=== PATIENT | female | born 1995 | race Asian ===

== ENCOUNTER 2018-05-09 08:56 | Emergency (ER) | payer BC, OTHER ==
[~2018-05-09] VITALS: Ht 157.5 cm; Wt 65.5 kg
[2018-05-09 09:06] VITALS: BP 113/89
--- NOTE | 2018-05-09 09:15 | NUR ---
PATIENT AMBULATED TO BED 7 AT THIS TIME.
--- NOTE | 2018-05-09 09:20 | NUR ---
22 Y F BIB UNCLE WITH C/O DRY COUGH SINCE LAST NIGHT, DIZZINESS, FELL ON A TILE FLOOR, LOC UNKNOWN DOWN TIME WITH HEAD LACERATION AND RT ELBOW. 2 IN HEAD LACERATION, +REDNESS, +BLEEDING. PAIN 8/10. ELBOW +ROM, -REDNESS, -SWELLING. AA0X4. CLEAR SPEECH. VSS AT THIS TIME. -N/V. BED IS DOWN, LOCKED, BED RAIL X 1, ERMD NOTIFIED. HX; DENIES RX; DENIES
--- NOTE | 2018-05-09 09:25 | NUR ---
DR COY AT BEDSIDE
--- NOTE | 2018-05-09 09:32 | NUR ---
RESIDENT AT BEDSIDE
[2018-05-09] MEDS ORDERED: LIDOCAINE/EPI 2% 1:100000 20 ML VIAL INJ ONE (09:48)
[2018-05-09] MEDS ORDERED: LIDOCAINE/EPI 1% 1:100000 20 ML VIAL INJ ONE ×2 (09:50→09:55)
[2018-05-09] MEDS ORDERED: CEPHALEXIN 500 MG CAP PO ONE (09:55)
[2018-05-09] MEDS ORDERED: LIDOCAINE 1% 500 MG/50 ML VIAL INJ ONE (09:55)
[2018-05-09] MEDS ORDERED: IBUPROFEN 800 MG TAB PO ONE (09:55)
[2018-05-09] MEDS ORDERED: NEOMYCIN/POLYMYXIN/BACITRACIN 0.9 GM/1 PKT TP ONE (09:55)
--- NOTE | 2018-05-09 10:29 | NUR ---
PT TAKEN OFF THE UNIT VIA WHEEL CHAIR FOR CT OF THE HEAD BY TERRENCE EASTON
--- NOTE | 2018-05-09 11:03 | NUR ---
WOUND DRESSING APPLIED BY HELEN/RN. +RADIAL PULSE. +FLEXION. PT VERBALIZES UNDERSTANDING OF DRESSING.
[2018-05-09 13:26] VITALS: BP 118/75
--- NOTE | 2018-05-09 13:28 | NUR ---
Patient discharged with v/s stable. Written and verbal after care instructions given and explained. Patient verbalized understanding.RX of ibuprofen given, Ambulatory with steady gait. All questions addressed prior to discharge. Advised to follow up with Pcp NANETTE AND LUCERO REMOVAL AFTER 12 VDAYS, PT VERBALIZED UNDERSTANDING.
== END 2018-05-09 13:28 | disposition home or self-care (01) ==
LOC: MED 08:56
DX: S01.01XA Laceration without foreign body of scalp, initial encounter (principal); R42 Dizziness and giddiness; W18.30XA Fall on same level, unspecified, initial encounter; Y93.89 Activity, other specified; Y92.89 Other specified places as the place of occurrence of the external cause; Y99.8 Other external cause status
CPT/HCPCS: 12002; 70450; 72125; 81002; 81025; 90471; 90715; 99284; J2001

== ENCOUNTER 2023-09-24 20:11 | Emergency (ER) | payer BC, OTHER ==
[~2023-09-24] VITALS: Ht 162.6 cm; Wt 74.8 kg
[2023-09-24 20:14] VITALS: BP 140/81; PULSE 91; RESP 18; TEMP 98.7; O2SAT 100
[2023-09-24] MEDS ORDERED: CYCL-711 PO (20:41)
[2023-09-24] MEDS ORDERED: LID5T TP (20:41)
[2023-09-24] MEDS ORDERED: IBUP-1842 PO (20:41)
[2023-09-24] MEDS: KETOROLAC 30 MG/ML VIAL IM ONE (20:47)
== END 2023-09-24 20:47 | disposition home or self-care (01) ==
LOC: MED 20:11
DX: M79.652 Pain in left thigh (principal); M79.651 Pain in right thigh; Z79.1 Long term (current) use of non-steroidal anti-inflammatories (NSAID); Z79.899 Other long term (current) drug therapy
CPT/HCPCS: 81025; 96372; 99283; J1885

== ENCOUNTER 2023-09-25 07:59 | Observation (INO) | payer BC ==
[~2023-09-25] VITALS: Ht 162.6 cm; Wt 79.4 kg
[~2023-09-25 07:59] MED LIST: CYCL-711 PO; IBUP-1842 PO; LID5T TP
[2023-09-25 08:20] VITALS: BP 142/81; PULSE 81; RESP 18; TEMP 97.7; O2SAT 100
--- NOTE | 2023-09-25 08:25 | NUR ---
pt ambualted to bed 12
--- NOTE | 2023-09-25 08:29 | NUR ---
pt ambulated to restroom to provide requested urine sample
--- NOTE | 2023-09-25 08:35 | NUR ---
PT UNABLE TO PROVIDE URINE SAMPLE AT THIS TIME
--- NOTE | 2023-09-25 08:40 | NUR ---
28 YO F; NKA; PMHX ANEMIA; PATIENT PRESENTS TO ED FOR BILATERAL LEG PAINS. PT SEEN YESTERDAY FOR SAME ISSUE, NOT IMPROVING. PT STATES DID A WORK OUT ON MONDAY AND STARTED HAVING DISCOMFOT IN BOTH LEGS SINCE. DENIES N/V/D; SKIN IS PINK/WARM/DRY; AAOX4, AMBULATORY WITH SOME DISCOMFORT ; LUNGS CLEAR BL; HR EVEN AND REGULAR; PT DENIES ANY FEVER, CP, SOB, OR COUGH AT THIS TIME; PATIENT STATES SHARP/STABBING/CONSTANT PAIN OF 10/10 AT THIS TIME; DURING ASSESSMENT RESPIRATORY THERAPY AIDE NOTICED BRUISING TO LEFT KNEE, PT STATES SHE DID FALL DURING WORKOUT. VSS; PATIENT POSITIONED FOR COMFORT; HOB ELEVATED; BEDRAILS UP X2; BED DOWN. ER MD MADE AWARE OF PT STATUS.
[2023-09-25] MEDS: NACL 0.9% 1,000 ML IV ONE (09:12)
[2023-09-25] MEDS: ONDANSETRON 4 MG/2 ML VIAL IVP ONE (09:50)
[2023-09-25] MEDS: MORPHINE SULFATE 4 MG/ML SYR IVP ONE (09:50)
[2023-09-25 09:53] LABS: APPEARANCE,URINE CLEAR (CLEAR); BILIRUBIN,URINE NEGATIVE (NEGATIVE); BLOOD, URINE 3+ (NEGATIVE); COLOR,URINE YELLOW (YELLOW); LEUKOCYTE ESTERASE ,URINE TRACE (NEGATIVE); NITRITE, URINE NEGATIVE (NEGATIVE); PROTEIN,URINE 2+ (NEGATIVE); UGLUCOSE NEGATIVE (NEGATIVE); UROBILINOGEN,URINE 0.2 EU/dL (0.2 - 1)
[2023-09-25 10:00] LABS: BASOPHILS % (AUTO) 0.5 % (0.0-2.0); EOSINOPHILS # (AUTO) 0.1 K/uL (0-0.4); EOSINOPHILS % (AUTO) 0.7 % (0.0-4.0); HEMOGLOBIN 12.7 g/dL (12.0-16.0); LYMPHOCYTES # (AUTO) 1.1 K/uL (2.5-16.5); LYMPHOCYTES % (AUTO) 12.3 % (20.5-51.1); MEAN CORPUSCULAR HEMOGLOBIN 31 pg (27-31); MEAN CORPUSCULAR HGB CONC 34 g/dL (33-37); MEAN CORPUSCULAR VOLUME 89.5 fL (80-94); MONOCYTES # (AUTO) 0.5 K/uL (0.8-1.0); MONOCYTES % (AUTO) 5.6 % (1.7-9.3); NEUTROPHILS # (AUTO) 7.2 K/uL (1.8-7.7); NEUTROPHILS % (AUTO) 80.9 % (42.2-75.2); PLATELET COUNT (AUTO) 297 K/uL (140-450); RED BLOOD CELL COUNT(AUTO) 4.14 MIL/uL (4.20-5.40); RED CELL DISTRIBUTION WIDTH 13.2 % (11.6-13.7); WHITE BLOOD COUNT (AUTO) 8.9 K/uL (4.8-10.8)
[2023-09-25 10:07] LABS: ALBUMIN 3.6 g/dL (3.4-5.0); ANION GAP 13.4 (8-16); CALCIUM 8.7 mg/dL (8.5-10.1); CARBON DIOXIDE 22.6 mmol/L (21-32); CREATININE 0.8 mg/dL (0.6-1.3); TOTAL BILIRUBIN 0.5 mg/dL (0.0-1.0)
[2023-09-25 10:14] LABS: BACTERIA,URINE 10-30 (MOD) /HPF (None Seen); MUCUS,URINE 2+ /LPF (None Seen); SQUAMOUS EPITHELIAL CELL,UR 4-10 (MOD) /LPF (0-3 (FEW))
[2023-09-25 10:15] LABS: HYALINE CASTS, URINE 0-10 /LPF (None Seen)
[2023-09-25 10:53] LABS: CREATINE KINASE, TOTAL 15222 U/L (26-192)
[2023-09-25] MEDS ORDERED: HYDROcodone/APAP 5/325 MG 1 TAB TAB PO PRN (12:00)
[2023-09-25] MEDS ORDERED: ONDANSETRON 4 MG/2 ML VIAL IVP PRN (12:00)
[2023-09-25] MEDS ORDERED: ACETAMINOPHEN 325 MG TAB PO PRN (12:00)
[2023-09-25] MEDS ORDERED: POTASSIUM CHLORIDE 10 MEQ TABER PO PRN (12:00)
[2023-09-25] MEDS ORDERED: LORazepam 1 MG TAB PO PRN (12:00)
[2023-09-25] MEDS ORDERED: KCL 20 MEQ IN 100 mL PREMIX 200 ML IV PRN (12:00)
[2023-09-25] MEDS ORDERED: ZOLPIDEM 5 MG TAB PO PRN (12:00)
--- NOTE | 2023-09-25 12:30 | NUR ---
Patient will be admitted to care of [facility]. Admited to MED/SURG. Will go to room 122B. Belongings list completed. Report to EARNESTINE RN.
[2023-09-25 13:00] VITALS: PULSE 75; RESP 16; O2SAT 100
--- NOTE | 2023-09-25 13:00 | NUR ---
RECEIVED PATIENT FROM ED NURSE FOR CONTINUATION OF CARE. PATIENT TRANSPORTED VIA GURNEY, PATIENT VERBALIZES NO CONCERNS, VITALSW ITHIN NORMAL LIMITS
[2023-09-25 16:00] VITALS: BP 120/65; PULSE 75; RESP 16; TEMP 208.9; O2SAT 100
[2023-09-25] MEDS: NACL 0.9% 1,000 ML IV SCH (16:00)
--- NOTE | 2023-09-25 18:00 | NUR ---
PATIENT COMPLAINS OF THIGH CRAMP AFTER COMING BACK FROM THE RESTROOM. LEG ASSESSED. NO SIGN OF UNILATERAL SWELLING, NO REDNESS. BOTH LEGS EQUAL TEMPERATURE. PATIENT VERBALIZES CRAMPING STARTED WHEN SITTING UP FROM THE TOILET. INFORMED
--- NOTE | 2023-09-25 19:20 | NUR ---
ENDORSED PATIENT TO PM NURSE FOR CONTINAUTION OF CARE. PATIENT STATES CRAMPING PAIN HAS SUBSIDED. PATIENT VITALS WITHIN NORMAL LIMITS.
--- NOTE | 2023-09-25 19:21 | NUR ---
RECEIVED SHIFT REPORT FROM EARNESTINE RN, PATIENT WAS STABLE DURING SHIFT REPORT. PATIENT IS ALERT AND ORIENTED X 4. PATIENT HAS S/S OF PAIN/DISCOMFORT TO BILATERAL LEGS. PATIENT REQUESTED FOR PURWIC BECAUSE THE LEG PAINS BEGAN WHEN SHE WENT TO USE THE BATHROOM. NO S/S OF RESPIRATORY DISTRESS. ALL NEEDS MET AT THIS TIME. SIDE RAILS UP X 2 FOR SAFETY. CALL LIGHT WITHIN REACH. [id number]
[2023-09-25 20:00] VITALS: BP 133/91; PULSE 76; RESP 18; TEMP 98.4; O2SAT 100
--- NOTE | 2023-09-25 23:42 | NUR ---
BECAUSE OF CRAMPS EARLIER WHEN USING THE RESTROOM, PATIENT USES THE BED ARGUETA. NOTED ASLEEP OTHERWISE. NO NOTED S/S OF PAIN/DISCOMFORT. NO NOTED RESPIRATORY DISTRESS. SIDE RAILS UP X 2. CALL LIGHT WITHIN REACH. [email or web address]
[2023-09-26 04:00] VITALS: BP 118/66; PULSE 60; RESP 17; TEMP 97.8; O2SAT 100
--- NOTE | 2023-09-26 04:08 | NUR ---
PATIENT NOTED IN BED RESTING. CHEST RISING AND FALLING EVENLY WITHOUT INCIDENT. NO S/S OF RESPIRATORY DISTRESS. NO NOTED S/S OF PAIN/DISCOMFORT. PATIENT REMAIN DRY AND CLEAN. SIDE RAILS UP X 3 FOR SAFETY CALL LIGHT WITHIN REACH. [email or web address]
[2023-09-26 06:04] LABS: ANION GAP 12.3 (8-16); CALCIUM 7.7 mg/dL (8.5-10.1); CARBON DIOXIDE 22.5 mmol/L (21-32); CREATININE 0.6 mg/dL (0.6-1.3); POTASSIUM 3.8 mmol/L (3.5-5.1)
[2023-09-26 06:23] LABS: BASOPHILS % (AUTO) 0.6 % (0.0-2.0); EOSINOPHILS # (AUTO) 0.2 K/uL (0-0.4); HEMOGLOBIN 11.8 g/dL (12.0-16.0); LYMPHOCYTES # (AUTO) 1.1 K/uL (2.5-16.5); LYMPHOCYTES % (AUTO) 13.5 % (20.5-51.1); MEAN CORPUSCULAR HEMOGLOBIN 32 pg (27-31); MEAN CORPUSCULAR HGB CONC 35 g/dL (33-37); MEAN CORPUSCULAR VOLUME 91.7 fL (80-94); MONOCYTES # (AUTO) 0.5 K/uL (0.8-1.0); MONOCYTES % (AUTO) 6.1 % (1.7-9.3); NEUTROPHILS # (AUTO) 6.6 K/uL (1.8-7.7); NEUTROPHILS % (AUTO) 77.8 % (42.2-75.2); PLATELET COUNT (AUTO) 265 K/uL (140-450); WHITE BLOOD COUNT (AUTO) 8.4 K/uL (4.8-10.8)
--- NOTE | 2023-09-26 06:54 | NUR ---
ENDORSED CARE TO EARNESTINE RN, PATIENT WAS STABLE DURING SHIFT REPORT. [email or web address]
--- NOTE | 2023-09-26 07:10 | NUR ---
Received report from Night RN for continuity of care. Pt is asleep with visible rise and fall of the chest. No sign of distress. Call light within reach.
[2023-09-26 08:00] VITALS: BP 109/74; PULSE 76; PULSE 77; RESP 18; RESP 19; TEMP 97.6; O2SAT 100
[2023-09-26] MEDS: ENOXAPARIN 40 MG/0.4 ML SYR SUBQ SCH (09:07)
--- NOTE | 2023-09-26 09:23 | NUR ---
PATIENT HAS BEEN SCREENED AND CATEGORIZED LOW NUTRITION RISK. PATIENT WILL BE SEEN WITHIN 7 DAYS OF ADMISSION. 10/02/[address]
--- NOTE | 2023-09-26 11:09 | NUR ---
PT RECEIVED FROM EARNESTINE AND Sadia SOMERS/KATHERYN,PT IS ON REGULAR DIET,SKIN IS INTACT,SAFETY IS ON PLACE, BED IN LOW POSITION,SIDE RAILS UP,PT IS STILL UNDER OBSERVATION.
--- NOTE | 2023-09-26 12:34 | NUR ---
PT SLEEPING ON BED,NO COMPLAINT FOR PAIN,NO DISTRESS NOTED,SAFETY IS ON PLACE,PT IS STILL UNDER OBSERVATION
[2023-09-26 13:32] VITALS: BP 109/79; PULSE 77; RESP 18; TEMP 97.5
--- NOTE | 2023-09-26 14:37 | NUR ---
PT DISCHARGED TO HOME,DISCHARGE PACKET GIVEN,EXPLAIN ALL INSTRUCTIONS,IV,ARM BAND REMOVED,PT ASSIST TO MAIN LOBBY
--- NOTE | 2023-10-16 14:37 | NUR ---
late entry : IVF NS started at 0505 on 09/26/23 was completed at 1145 .
--- NOTE | 2023-10-20 13:10 | NUR ---
late entry : per primary nurse, NS IV started on 09/25/23 @1600 was completed at 2230; NS IV started at 2306 completed infusion at 0500 on 09/26/23.
== END 2023-09-26 14:30 | disposition home or self-care (01) ==
LOC: MED 07:59 → MTU 11:59
PROVIDERS: ADMIT Internal Medicine; ATTEND Internal Medicine
DX: M62.82 Rhabdomyolysis (principal); R74.01 Elevation of levels of liver transaminase levels; M79.604 Pain in right leg; M79.605 Pain in left leg; Z79.899 Other long term (current) drug therapy
CPT/HCPCS: 36415; 80048; 80053; 81001; 82550; 82553; 85025; 87081; 87086; 96361; 96372; 96374; 96375; 99284; G0378; J1650; J2270; J2405